=== PATIENT | male | born 1970 | race Caucasian/White ===

== ENCOUNTER 2021-09-05 15:13 | Outpatient (REF) | payer OTHER, SELFPAY ==
[2021-09-05 14:30] LABS: HCT 50.5 % (40.0-50.0); HGB 17.1 g/dL (13.5-17.5); MCH 29.5 pg (27.0-33.0); MCHC 33.9 % (32.0-36.0); MCV 87.1 fL (80-95); MPV 9.7 fL (8.0-11.0); Platelet Count 236 10^3/uL (130-400); RDW 11.9 % (11.8-14.1); RDW-SD 38.1 fL; WBC 5.76 10^3/uL (4.4-10.8)
[2021-09-05 14:44] LABS: ALT 41 U/L (16-63); AST 24 U/L (15-37); Albumin 4.6 g/dL (3.4-5.0); Alkaline Phosphatase 70 U/L (46-116); Anion Gap 11.3 mmol/L (3-11); BUN 15 mg/dL (7-18); Bilirubin, Total 0.7 mg/dL (0.2-1.0); CO2 25.7 mmol/L (21.0-32.0); Calcium 9.5 mg/dL (8.5-10.1); Calculated LDL 174 mg/dL (<100); Chloride 102 mmol/L (98-107); Cholesterol 265 mg/dL (<200); Glucose 101 mg/dL (74-106); HDL Cholesterol 37 mg/dL (40-60); Potassium 4.3 mmol/L (3.5-5.1); Sodium 139 mmol/L (136-145); Total Protein 7.9 g/dL (6.4-8.2); Triglyceride 273 mg/dL (<150)
== END 2021-09-05 15:14 | disposition home or self-care (01) ==
LOC: NCHCN 15:13
PROVIDERS: Visit Provider Family Medicine
DX: E66.9 Obesity, unspecified (principal); R03.0 Elevated blood-pressure reading, without diagnosis of hypertension; N50.811 Right testicular pain; E78.5 Hyperlipidemia, unspecified
CPT/HCPCS: 80053; 80061; 85027

== ENCOUNTER 2021-11-27 02:32 | Outpatient (CLI) | payer OTHER, SELFPAY ==
[2021-11-27 09:53] LABS: Source Nasal/Nares
[2021-11-27 12:07] LABS: COVID-19 PCR Negative (Negative)
== END 2021-11-27 02:33 | disposition home or self-care (01) ==
LOC: LBO 02:32
PROVIDERS: Surgery; PCP Family Medicine; Visit Provider Surgery
DX: Z20.822 Contact with and (suspected) exposure to COVID-19 (principal); Z01.818 Encounter for other preprocedural examination
CPT/HCPCS: 87635

== ENCOUNTER 2021-11-28 06:19 | Day surgery (SDC) | payer OTHER, SELFPAY ==
[2021-11-28] VITALS (10 sets, daily range): BP systolic 92–141; BP diastolic 59–98; PULSE 66–113; RESP 15–18; TEMP 36.2–36.7; O2SAT 93–98; BMI 34.2
--- NOTE | 2021-11-28 06:28 | W.PM.OP ---
Date of service: 11/28/21 Time of Service: 08:20 Operative Note Operative Note DATE OF PROCEDURE: 11/28/21 PRE-OP DIAGNOSIS: bilateral inguinal hernias and right hydrocele same PROCEDURE: Bilateral inguinal hernia repair with mesh and right hydrocelectomy SURGEON: Amy Hickey COMMUNICATIONS TECHNOLOGIST: Doris Holt ANESTHESIA TYPE: General LMA/ETT and Other (bilateral TAP block) Refer to Anesthesia Record ESTIMATED BLOOD LOSS: 25 PATHOLOGY: none sent COMPLICATIONS: None Patient was transported to: PACU Patient's condition: stable Implants: Left- Perfix light: [id number] LOT- [id number] - 2025-11-24 Right- Bard Mesh: REF- [id number] LOT- [id number] - 2025-10-25 Indications: Uziel is a pleasant 51-year-old gentleman with recurrent bilateral inguinal hernias as well as a right hydrocele.? We discussed open repair of his hernias either at the same time or unilateral repair.? We discussed the procedures in detail as well as the risks and benefits.? He would like to think about whether he wants to have both of them repaired at the same time or the right side first which is the one that bothers him the most.? We will do the hydrocelectomy at the same time as repairing his right inguinal hernia. Risks, benefits and complications have been reviewed. Complications include but are not limited to bleeding, pain, infection, injury to underlying structures like bowel and adverse reaction to the medication.? Questions were entertained and answered to their satisfaction and they wished to proceed. No guarantees were given or implied. Bilateral inguinal hernia pair with mesh and right hydrocelectomy Findings: Left- indirect and direct hernia, Cord lipoma Right- direct hernia and hydrocele Procedure Description: After informed consent was obtained the patient was taken to the operating room and placed in a supine position. He was placed under general anesthesia and an LMA was placed. A timeout was done for the bilateral block. Anesthesia then did a bilateral nerve block under ultrasound guidance please see separate report. His abdomen was clipped and prepped and draped in a sterile surgical fashion with ChloraPrep. A 4 cm incision was then made in the left inguinal area. Cautery was used to get through the subcutaneous tissue down to the external oblique fascia. The external ring was identified and the fascia was opened from the external ring up. The edges of the cut external oblique fascia were grasped with hemostats. The ilioinguinal nerve was identified and cut. The vas and its vessels were identified and a Wheelwright drain was placed around the vas. The cremasteric muscle was dissected away from the vas and its vasculature using blunt dissection as well as cautery. A cord lipoma was identified and removed with blunt and sharp dissection. A large plug Marlex prefix mesh was placed into the internal ring and secured with 2-0 Prolene. The large flat mesh was then attached to the lacunar ligament and then medially and laterally with a 2-0 Prolene. The tails of the mesh were placed under the external oblique fascia. The wound was then irrigated with some normal saline and dried. There external oblique fascia was reapproximated using 2-0 Vicryl. The subcutaneous tissue was re-approximated using 3-0 vicryl interrupted sutures. The skin was closed with a running 4-0 Vicryl suture. Next a 4 cm incision was made in the right inguinal area. Cautery was used to get through the subcutaneous tissue down to the external oblique fascia. The external ring was identified and the fascia was opened from the external ring up. The edges of the cut external oblique fascia were grasped with hemostats. The ilioinguinal nerve was identified and cut. The vas and its vessels were identified and a Wheelwright drain was placed around the vas and its vessels. The cremasteric muscle was dissected away from the vas and its vasculature using blunt dissection as well as cautery. A cord lipoma was then identified as well and this was dissected away from the cord structures using cautery. The testicle was then gently delivered into the operating field and the hydrocele was identified. The hydrocele was opened and cut. The edges were everted and sutured together. The testicle was then gently placed back into the scrotum. A flat 3 x 6 Bard mesh was then cut to size and attached to the lacunar ligament with 2-0 Prolene. The mesh was attached laterally and medially with a 2-0 Prolene running suture all the way up past the cord structures. The internal ring was re-created with the mesh. The extra tail of the mesh was then placed underneath the external oblique fascia. The area was irrigated with saline. The external oblique fascia was reapproximated using 2-0 Vicryl. The subcutaneous tissue was reapproximated using 3-0 Vicryl. The dermis was reapproximated using a running 4-0 Vicryl suture. . Skin was cleaned and dried and skin affix was applied to all incisions. The drapes were removed and the testicles were palpated and they were both within the scrotum. The patient was woken up extubated and taken back to PACU in stable condition. Sponge, instrument and needle counts were correct at the end of the case x2.
--- NOTE | 2021-11-28 06:30 | W.PM.DSUDISC ---
Discharge Plan Disposition Patient Disposition: HOME Condition: Good Discharge Details Reason For Visit: bilateral inguinal hernia, right hydrocele Attending Provider: Amy Hickey Primary Care Provider: Ciro Gresham Home Meds and New Rx's Prescriptions: New oxycodone 5 mg tablet 5 mg PO Q6H PRNQty: 14 0RF Continued multivitamin Tablet 1 tab PO DAILY clonazepam [Klonopin] 1 mg Tablet 1 mg PO DAILY PRN Discharge Instructions Instructions: Inguinal Hernia Repair (DC) Additional Instructions: Activity at Home after surgery: 1. Make sure you walk outside at least 4 times per day 2. You should be able to climb a flight of stairs 3. No driving while in pain or taking pain medications 4. No strenuous activity or heavy lifting for 4 weeks (open surgery) Diet, Nutrition, & wound healin. Avoid alcohol until after you are recovered from your surgery 2. Make sure to eat plenty of lean protein (meat, fish, eggs, cottage cheese, beans) 3. Eat a variety of fruits and vegetables. Eat plenty of high fiber foods to avoid constipation. 4. Drink plenty of liquids to stay hydrated and avoid constipation Pain Medications: 1. Tylenol 650mg every 6 hours as needed and Ibuprofen 600 mg every 6 hours as needed. You may alternate between the 2 medications every 3 hours 2. If a narcotic has been prescribed take as directed only for breakthrough pain For Constipation: 1. Take Milk of Magnesia or MiraLax as needed for constipation Other: 1. You may shower daily. Do not scrub the incisions 2. Do not soak the incisions for 1 week 3. You may alternate ice and heat as needed for pain and swelling 4. Use supportive garment for comfort during the day Wound Care: 1. Keep the incisions clean and dry Please call our office if you develop: 1. Fevers >101.5 2. Nausea or Vomiting 3. Worsening pain 4. Redness and thick discharge from the wounds If after hours please call the Hospital at and ask to speak to the on-call surgeon Referrals: Amy Hickey MD [ [facility] ST[facility]FF PHYSICIAN] - 12/14/21 9:00 am Activity:: as above Remove Dressings/Wound Care:: Do Not Remove Shower/Bathe:: 24 hours Diet:: As Tolerated Discharge Orders Discharge Orders: Discharge Order (Routine); Ordered 11/28/21 Ordered By: Amy Hickey
[2021-11-28] MEDS: Acetaminophen 500 MG TAB 1000 MG PO (06:36)
[2021-11-28] MEDS: Celecoxib 200 MG CAP PO (06:36)
[2021-11-28] MEDS: Lactated Ringers 1,000 ML 80 ML IV (06:45)
--- NOTE | 2021-11-28 06:55 | ANES.PREOP_ITS ---
General Info Date of Service Date Performed: 11/28/21 Height: 5 ft 11 in Weight: 111.5 kg Body Mass Index (BMI): 34.2 Surgical Procedure: Operation Date: 11/28/21 07:40 Proposed Procedure Side Surgeon p Herniorrhaphy Inguinal w/Mesh Bilateral Amy Hickey MD s Hydrocelectomy Right Amy Hickey MD Meds Allergies and Home Medications Allergies Allergy/AdvReac Type Severity Reaction Status Date / Time atorvastatin AdvReac Per pt. Verified 11/28/21 06:25 states leg myalgia omeprazole AdvReac pt. states Verified 11/28/21 06:25 it makes him very dizzy and he doesn't have any b Home Medication Medication Instructions Recorded multivitamin 1 tab PO DAILY 09/27/21 clonazepam 1 mg tablet (Klonopin) 1 mg PO DAILY PRN 11/23/21 Current Visit Medications: Current Medications Generic Name Dose Route Start Last Admin Trade Name Freq PRN Reason Stop Dose Admin Acetaminophen 1,000 mg 11/28/21 06:00 11/28/21 06:36 Acetaminophen 500 Mg Tab PO 11/28/21 23:59 1,000 mg PREOP NELY Administration Celecoxib 200 mg 11/28/21 06:00 11/28/21 06:36 Celecoxib 200 Mg Cap PO 11/28/21 23:59 200 mg PREOP NELY Administration Ringer's Solution 1,000 mls @ 80 mls/hr 11/28/21 06:00 11/28/21 06:45 IV 12/27/21 23:59 80 mls/hr INFUSION NELY Administration Cefazolin Sodium/Dextrose 2 gm in 50 mls @ 100 mls/hr 11/28/21 06:00 Ancef Duplex IVPB 11/28/21 23:59 PREOP NELY Ondansetron HCl 4 mg/ Sodium 52 mls @ 200 mls/hr 11/28/21 06:31 Chloride IVPB Q6H PRN PRN IV Miscellaneous Supplies 1 each 11/28/21 06:00 Iv Access IV 12/27/21 23:59 DIRECTED NELY Midazolam HCl 1 mg 11/28/21 06:00 Midazolam 2 Mg/2 Ml Vial IVP 11/28/21 16:00 PREOP NELY Morphine Sulfate 2 mg 11/28/21 06:31 Morphine 4 Mg/Ml Syr IVP Q1H PRN PRN Oxycodone HCl 5 mg 11/28/21 06:31 Oxycodone 5 Mg Tab PO Q3H PRN PRN Pain Sodium Chloride 0 ml 11/28/21 06:00 Normal Saline Flush 10 Ml Syr IV 12/27/21 23:59 PRN PRN Sodium Chloride 0 ml 11/28/21 06:00 Normal Saline 10 Ml Vial IJ 12/27/21 23:59 DIRECTED PRN Sterile Water 0 ml 11/28/21 06:00 Water,Injection,Sterile 10 Ml Vial IJ 12/27/21 23:59 DIRECTED PRN PFSH Active Problems Active Problems: Problem Status Onset Code Hernia K46.9 Recurrent bilateral inguinal hernia K40.21 Hydrocele N43.3 Testicular pain, right N50.811 Medical History Medical History Anxiety when he has to see 's Elevated BP without diagnosis of hypertension GERD (gastroesophageal reflux disease) Hyperlipidemia Surgical History Surgical History S/P laparoscopic hernia repair (~2018) Bilateral inguinal hernia repair- [place] S/P right inguinal hernia repair 20 years ago Tobacco Smoking/Tobacco Use Status: Former Tobacco Use Alcohol Alcohol Intake: never Substance Use Substance use: Never Substance use type: does not use Vital Signs and Lab Results Vital Signs Most Recent Vital Signs in EMR: Most Recent Vital Signs Temp Pulse Resp BP Pulse Ox 36.7 C 113 H 18 141/98 H 98 11/28/21 06:27 11/28/21 06:27 11/28/21 06:27 11/28/21 06:27 11/28/21 06:27 Lab Results Blood Type / Crossmatch: No Data to Display Complete Blood Count: No Data to Display Complete Metabolic Panel: No Data to Display Liver Function Panel: No Data to Display Coagulation Panel: No Data to Display Cardiac Panel: No Data to Display Arterial Blood Gas: No Data to Display Venous Blood Gas: No Data to Display Pancreas Panel: No Data to Display Thyroid Panel: No Data to Display Infectious Disease: Coronavirus (COVID-19)(PCR) Negative (Negative) 11/27/21 09:30 Coronavirus 2019 Source Nasal/Nares 11/27/21 09:30 Blood Cultures: No Data to Display Toxicology Panel: No Data to Display Anesthesia Assessment and Plan Anesthesia History Personal History: No History of Anesthesia Complications Family History: No Family History of Anesthesia Complications Exercise Tolerance Exercise Tolerance: Metabolic Equivalents>4 Pertinent Negatives Pertinent Negatives: No Symptoms of GERD, No Major Cardiovascular Symptoms or Complaints and No Major Pulmonary Symptoms or Complaints Cardiac & Pulmonary Exam Cardiac Exam: Normal S1/S2 Heart Sounds Pulmonary Exam: Clear Bilateral Breath Sounds Implantable Cardiac Device Does patient have a Pacemaker or an ICD?: No Airway Exam Known Difficult Airway: No Mallampati Class: 1 Mouth Opening: Normal (> 3cm) Thyromental Distance: Greater than 3 cm Neck Range of Motion: Full ROM Neck Circumference: Normal Teeth Condition: Removable Dentures/Plates Upper ASA Classification ASA Score: ASA 2 Emergency Case?: No NPO Status NPO Status: NPO Clears >2 hours, Solids >8 hours Anesthesia Plan Resuscitation Status: Full Code Anesthesia Technique: General Anesthesia Airway Planned: LMA Pain Management: Surgeon and patient request nerve block Monitors Used: Standard Monitors
[2021-11-28] MEDS: Midazolam 2 MG/2 ML VIAL 1 MG IVP (07:09)
[2021-11-28] MEDS: ceFAZolin 2 GM/50 ML BAG IVPB (07:25)
--- NOTE | 2021-11-28 07:50 | W.ANESNERVE ---
Nerve Block Single Injection Procedure Date and Time Date Performed: 11/28/21 Procedure Start: 07:35 Location Where Procedure Performed Procedure Location: Operating Room Procedure Stop: 07:42 Reason Performed: Postoperative Analgesia Requesting Provider: Amy Hickey Timeout Performed Timeout Performed: Yes Monitoring Used ECG, Blood Pressure, SpO2, ETCO2 and See EMR for corresponding vital signs Sterility Sterility: Hand Hygiene, Surgical Cap, Surgical Mask, Sterile Gloves and Chlorhexidine Sedation Given During Procedure Sedation Given (Indicate Dose Given): No Sedation given Patient Mental Status Patient Mental Status: Performed under general anesthesia Nerve Block 1st Nerve Block: Laterality: Bilateral Block Type: TAP Bilateral Needle / Catheter Used: 100mm SonoPlex II Local Anesthetic Bolus (Indicate Dose Given): Injected in 3-5ml increments after negative blood aspiration and Bupivacaine 0.25% Dose:: 50ml Additives (Indicate Dose Given): Normal Saline (10ml) Ultrasound: Sterile probe cover and gel used Ultrasound Image Saved?: Yes Nerve Stimulator: Not Used Paresthesia: None Procedure Tolerated: No Complications and Patient tolerated well Procedure Outcome: Successful Performed By: Galileo Prado
--- NOTE | 2021-11-28 10:51 | W.ANESPOSTOP ---
Postoperative Evaluation Date, Time and Location Date Performed: 11/28/21 Time Performed: 10:02 Patient Location: Day Surgery Unit Vital Signs Most Recent Imported Vital Signs: Most Recent Vital Signs Temp Pulse Resp BP Pulse Ox 36.4 C L 77 18 133/83 93 11/28/21 10:30 11/28/21 10:30 11/28/21 10:30 11/28/21 10:30 11/28/21 10:30 Pain Score Most Recent Pain Score: Most Recent Pain Score Pain Level 1 11/28/21 10:30 Assessment Mental Status: Awake (Alert & Oriented to Patient Baseline) Airway and Respiratory Function: Patent airway with normal (patient baseline) respiratory exam Cardiovascular Function: Hemodynamically Stable Hydration Status: Adequately Hydrated Nausea & Vomiting: No Nausea or Vomiting Pain: Pain is tolerable per patient Peripheral Nerve Block: Regional nerve block not resolved at time of post operative discharge
[2021-11-28] MEDS: oxyCODONE 5 MG TAB PO (11:21)
== END 2021-11-28 12:00 | disposition home or self-care (01) ==
PROVIDERS: PCP Family Medicine; Visit Provider Surgery
PROC: (CPT 49505; principal; 2021-11-28 07:30)
PROC: (CPT 49505; 2021-11-28 07:30)
DX: K40.20 Bilateral inguinal hernia, without obstruction or gangrene, not specified as recurrent (principal); N43.3 Hydrocele, unspecified; E78.5 Hyperlipidemia, unspecified; F41.9 Anxiety disorder, unspecified
CPT/HCPCS: 49505; 55500; 76942; C1781; J0690; J1100; J1885; J2250; J2405; J2704

== ENCOUNTER 2022-03-05 08:19 | Emergency (ER) | payer OTHER, SELFPAY ==
[2022-03-05 08:28] VITALS: BP 171/99; PULSE 96; TEMP 36.2; O2SAT 98
--- NOTE | 2022-03-05 08:30 | DI.RAD_ITS ---
Exam(s) XR WRIST LT COMPLETE EXAM: XR WRIST LT COMPLETE CLINICAL HISTORY: fall onto L wrist, r/o fx. TECHNIQUE: 2D digital imaging was performed of the left wrist. Three images were obtained. PA, obl ique and lateral views were obtained. COMPARISON: No exams were available for comparison FINDINGS: BONES: No acute fracture is present. No bony destructive lesion is seen. JOINTS: The carpal bones are normally aligned. SOFT TISSUE: Normal. IMPRESSION: Unremarkable radiographs of the left wrist. DATA REPOSITORY: RADIATION DOSE DELIVERED:
--- NOTE | 2022-03-05 08:31 | W.ED.GENAD ---
Discharge Plan Disposition Patient Disposition: HOME Condition: Stable Discharge Details Clinical Impression: Left wrist sprain Primary Care Provider: Ciro Gresham ED Provider: Cherelle Huertas Home Meds and New Rx's Prescriptions: Continued multivitamin Tablet 1 tab PO DAILY clonazepam [Klonopin] 1 mg Tablet 1 mg PO DAILY PRN Discharge Instructions Instructions: Wrist Sprain (ED) Additional Instructions: Your x-ray today is negative for fracture or dislocation. Rest, ice, and elevate the affected area as much as possible. Alternate tylenol and motrin as needed and directed for pain. Follow up with your primary care doctor in 1 week as needed and for referral to orthopedics if indicated. Return to the emergency department with any worsening or new concerning symptoms. Referrals: Fausto Mitchell MD [ [facility] STAFF PHYSICIAN] - Discharge Data Discharge Date/Time-TO BE ENTERED AT DEPARTURE: 03/05/22 09:30 Discharge Physician: Cherelle Huertas Medical Decision Making 51-year-old [id number] male presents with left wrist pain after mechanical fall onto outstretched left hand 1 week ago. There is tenderness to palpation and pain with range of motion in the dorsal ulnar wrist. There is no obvious deformity and he is neurovascularly intact. Hand is normal to inspection and palpation. He declines medication for pain. Patient referred for left wrist x-ray which is unremarkable. Patient placed in a left wrist splint. Advised on the importance of RICE, alternating tylenol and motrin. Given orthopedic follow-up information if needed. Usual and customary return precautions given. Medical Records Medical records reviewed: Yes I reviewed the patient's medical records. Imaging Data Radiologic Study: Radiologist's impression: XR WRIST LT COMPLETE CLINICAL HISTORY: ? fall onto L wrist, r/o fx.? TECHNIQUE:? 2D digital imaging was performed of the left wrist.? Three images were obtained.? PA, oblique and lateral views were obtained. COMPARISON:? No exams were available for comparison FINDINGS: BONES: No acute fracture is present. No bony destructive lesion is seen. JOINTS: The carpal bones are normally aligned. SOFT TISSUE: Normal. IMPRESSION: Unremarkable radiographs of the left wrist. HPI General Mode of arrival: ambulatory. Date/Time Provider Initiated Documentation: 03/05/22 08:21. Limitations to Documentation: no limitations. Information obtained by: patient. HPI Narrative: Patient is a 51-year-old right hand dominant male presents with left wrist pain after mechanical fall onto left wrist 1 week ago. Patient states he tripped landing on outstretched bilateral hands 1 week ago. He denies any pain or injury to his right wrist. He states he has been having pain mainly in his left dorsal wrist that is worse with movement and range of motion. Related Data Home Medications Medication Instructions Recorded Confirmed multivitamin 1 tab PO DAILY 09/27/21 03/05/22 clonazepam 1 mg tablet (Klonopin) 1 mg PO DAILY PRN 11/23/21 03/05/22 Allergies Allergy/AdvReac Type Severity Reaction Status Date / Time atorvastatin AdvReac Per pt. Verified 03/05/22 08:31 states leg myalgia omeprazole AdvReac pt. states Verified 03/05/22 08:31 it makes him very dizzy and he doesn't have any b General Stated Complaint: Orthopedic YOLANDA: 4 Review of Systems All systems reviewed & are unremarkable except as noted in HPI and below Constitutional Constitutional: Reports as per HPI, Denies chills and Denies fever(s) Eyes Eyes: Denies blurry vision ENT Ears, Nose, Mouth, and Throat: Denies dizziness, Denies sore throat and Denies throat swelling Cardiovascular Cardiovascular: Denies chest pain and Denies dyspnea Respiratory Respiratory: Denies cough and Denies dyspnea Gastrointestinal Gastrointestinal: Denies abdominal pain, Denies diarrhea and Denies vomiting Genitourinary Genitourinary: Denies hematuria and Denies dysuria Musculoskeletal Musculoskeletal: Denies back pain and Denies numbness Comments: L wrist pain Integumentary/Breasts Skin/Breast: Denies lesions and Denies rash Neurologic Neurologic: Denies dizziness, Denies localized weakness and Denies numbness Allergic/Immunologic Allergic/Immunologic: Denies throat swelling PFSH All Active Problems (Updated 03/05/22 @ 09:17 by Cherelle Huertas DO) Left wrist sprain (Acute) Hernia (Chronic) Recurrent bilateral inguinal hernia (Acute) Hydrocele (Acute) Right side Testicular pain, right (Acute) Medical History (Updated 03/05/22 @ 09:17 by Cherelle Huertas DO) Anxiety when he has to see 's Elevated BP without diagnosis of hypertension GERD (gastroesophageal reflux disease) Hyperlipidemia Surgical History (Updated 12/14/21 @ 09:13 by Amy Hickey MD) S/P bilateral inguinal hernia repair (~11/28/21) S/P laparoscopic hernia repair (~2018) Bilateral inguinal hernia repair- [place] S/P right inguinal hernia repair 20 years ago Social History Smoking/Tobacco Use Status: Former Tobacco Use Quit Date: 06/30/09 Smoking risk assessment performed?: Yes Alcohol Intake: never Drug use: Never Substance use type: does not use Do you feel safe at home: Yes Do you feel safe in your relationship?: Yes Exam Const General: cooperative, healthy appearing and no acute distress Orientation: alert, awake and oriented x3 HENMT Head: normal to inspection Mouth: oral mucosae normal Eyes General: appearance normal, both eyes and all related structures Neck Neck: normal visual inspection Resp Effort & Inspection: normal respiratory effort and able to speak in complete sentences Cardio Rate: regular rate Skin General skin exam: no rashes or lesions noted Neuro General: patient alert, patient awake and patient oriented x3 Motor: muscle tone normal throughout Extrem Elbow/forearm/wrist images: 1. Tenderness to palpation overlying dorsal ulnar wrist. Pain reproducible with flexion, extension, pronation and supination. There is no left snuffbox tenderness. No tenderness to palpation to left hand or fingers. Left radial pulse intact. No deformity or significant edema or ecchymosis. Psych Appearance: grossly normal Affect: normal affect Course Vital Signs Vital signs: Vital Signs Temperature 97.2 F L 03/05/22 08:28 Pulse 96 H 03/05/22 08:28 Blood Pressure 171/99 H 03/05/22 08:28 Pulse Oximetry 98 03/05/22 08:28 Temperature 97.2 F L 03/05/22 08:28 Temperature Source Tympanic 03/05/22 08:28 Pulse 96 H 03/05/22 08:28 Blood Pressure 171/99 H 03/05/22 08:28 Blood Pressure Position Sitting 03/05/22 08:28 Pulse Oximetry 98 03/05/22 08:28 Oxygen Delivery Method Room Air 03/05/22 08:28 Oxygen Flow Rate 0 03/05/22 08:28
== END 2022-03-05 09:30 | disposition home or self-care (01) ==
PROVIDERS: Emergency Provider Physician Assistant; PCP Family Medicine
DX: S63.502A Unspecified sprain of left wrist, initial encounter (principal); Z87.891 Personal history of nicotine dependence; W01.0XXA Fall on same level from slipping, tripping and stumbling without subsequent striking against object, initial encounter
CPT/HCPCS: 29105; 99283; 73110; 99282

== ENCOUNTER 2025-02-02 09:45 | Outpatient (REF) | payer OTHER, SELFPAY ==
[2025-02-02 15:43] LABS: ALT 43 U/L (16-63); AST 32 U/L (15-37); Albumin 4.3 g/dL (3.4-5.0); Alkaline Phosphatase 79 U/L (46-116); Anion Gap 7.5 mmol/L (3-11); BUN 20 mg/dL (7-18); Bilirubin, Total 0.8 mg/dL (0.2-1.0); CO2 28.5 mmol/L (21.0-32.0); Calcium 9.2 mg/dL (8.5-10.1); Calculated LDL 174 mg/dL (<100); Chloride 101 mmol/L (98-107); Cholesterol 244 mg/dL (<200); Estimated GFR 79.77 (mL/min/1.73m2); Glucose 100 mg/dL (74-106); HDL Cholesterol 43 mg/dL (>or=40); Potassium 4.6 mmol/L (3.5-5.1); Sodium 137 mmol/L (136-145); Total Protein 7.3 g/dL (6.4-8.2); Triglyceride 136 mg/dL (<150)
== END 2025-02-02 09:46 | disposition home or self-care (01) ==
LOC: NCHCN 09:45
PROVIDERS: PCP Family Medicine; Visit Provider Family Medicine
DX: E78.5 Hyperlipidemia, unspecified (principal); E66.9 Obesity, unspecified
CPT/HCPCS: 80053; 80061